=== PATIENT | female | born 2000 | race Two or more races ===

== ENCOUNTER 2023-07-28 20:29 | Emergency (ER) | payer OTHER ==
[~2023-07-28] VITALS: Ht 152.4 cm; Wt 65.8 kg
[2023-07-28] MEDS ORDERED: DUI500 PO (22:40)
[2023-07-28] MEDS ORDERED: MUPIROCIN15 GM TOP ×2 (22:40→22:42)
== END 2023-07-29 00:13 | disposition home or self-care (01) ==
LOC: ER 20:29
DX: S61.011A Laceration without foreign body of right thumb without damage to nail, initial encounter (principal); W26.0XXA Contact with knife, initial encounter; Y93.89 Activity, other specified; Y92.89 Other specified places as the place of occurrence of the external cause; Y99.9 Unspecified external cause status

== ENCOUNTER 2023-08-04 15:45 | Emergency (ER) | payer OTHER ==
[~2023-08-04] VITALS: Ht 152.4 cm; Wt 65.8 kg
[~2023-08-04 15:45] MED LIST: DUI500 PO; MUPIROCIN15 GM TOP
== END 2023-08-04 18:52 | disposition home or self-care (01) ==
LOC: ER 15:45
DX: Z48.02 Encounter for removal of sutures (principal)

== ENCOUNTER 2023-08-08 18:56 | Emergency (ER) | payer OTHER ==
[~2023-08-08] VITALS: Ht 162.6 cm; Wt 63.5 kg
== END 2023-08-08 21:44 | disposition home or self-care (01) ==
LOC: ER 18:56
DX: Z48.02 Encounter for removal of sutures (principal)